=== PATIENT | male | born 1995 | race Caucasian/White ===

== ENCOUNTER → 2018-11-25 14:10 | Outpatient (CLI) | payer OTHER, SELFPAY ==
--- NOTE | 2018-11-25 14:12 | DI.RAD.S_ITS ---
PROCEDURE: XR ANKLE RT MIN 3V INDICATIONS: R ankle pain TECHNIQUE: 3 views of the ankle were acquired. COMPARISON: None. FINDINGS: Bones: No fractures or dislocations. Ankle mortise is normally aligned. No suspicious bony lesions. Soft tissues: No tibiotalar joint effusion. Achilles tendon appears normal. IMPRESSION: No acute fracture. No osseous lesion. If symptoms and/or clinical suspicion for pathology persist, further assessment with repeat, or advanced imaging (e.g., CT, MRI, or bone scan) may be helpful for further assessment. Dictated by: Quinn Shepard M.D. on 11/25/2018 at 14:49 Approved by: Quinn Shepard M.D. on 11/25/2018 at 14:49
== END ==
PROVIDERS: PCP Student in an Organized Health Care Education/Training Program; Visit Provider Physician Assistant
DX: M25.571 Pain in right ankle and joints of right foot (principal)
CPT/HCPCS: 73610